=== PATIENT | male | born 1990 | race Two or more races ===

== ENCOUNTER 2018-06-16 19:58 | Emergency (ER) | payer MEDICAID, OTHER ==
[~2018-06-16] VITALS: Ht 180.3 cm; Wt 117.9 kg
[2018-06-16 20:01] VITALS: BP 150/84
== END 2018-06-16 20:56 | disposition home or self-care (01) ==
LOC: ER 19:58
DX: H93.12 Tinnitus, left ear (principal); F32.9 Major depressive disorder, single episode, unspecified; F41.9 Anxiety disorder, unspecified; Z60.2 Problems related to living alone
CPT/HCPCS: 99283; A4606